=== PATIENT | female | born 1970 | race American Indian/Alaskan Native ===

== ENCOUNTER 2019-08-12 12:49 | Emergency (ER) | payer SELFPAY ==
[2019-08-12 13:41] VITALS: BP 111/80
--- NOTE | 2019-08-12 14:46 | Emergency Department Report ---
Blank Doc - Documentation Documentation: 49-year-old female that presents with right sided headache and right eye pain. Denies any trauma or injuries. Stated is a new type of headache. This initial assessment/diagnostic orders/clinical plan/treatment(s) is/are subject to change based on patient's health status, clinical progression and re- assessment by fellow clinical providers in the ED. Further treatment and workup at subsequent clinical providers discretion. Patient/guardians urged not to elope from the ED as their condition may be serious if not clinically assessed and managed. Initial orders include: 1- Patient sent to [facility] for further evaluation and treatment 2- CT head
--- NOTE | 2019-08-12 15:14 | Cat Scan Report ---
CT HEAD WITHOUT CONTRAST INDICATION / CLINICAL INFORMATION: headache and right eye pain. TECHNIQUE: Axial imaging performed from the skull apex through the skull base without the use of cont rast. Sagittal and coronal reformatted images. All CT scans at this location are performed using CT dose reduction for ALARA by means of automated exposure control. COMPARISON: None available. FINDINGS: CEREBRAL PARENCHYMA: No significant abnormality. No acute territorial infarct. HEMORRHAGE: None. EXTRA-AXIAL SPACES: Normal in size and morphology for the patient's age. VENTRICULAR SYSTEM: Normal in size and morphology for the patient's age. MIDLINE SHIFT OR HERNIATION: None. CEREBELLUM / BRAINSTEM: There is crowding at the foramen magnum. Mild cerebellar tonsillar ectopia is suspected measuring approximately 5 mm. CALVARIUM: No significant abnormality. ORBITS: Only the superior orbits are included on this exam which demonstrate no abnormality. PARANASAL SINUSES / MASTOID AIR CELLS: Normal as visualized. SOFT TISSUES of HEAD: No significant abnormality. ADDITIONAL FINDINGS: None. IMPRESSION: No acute intracranial abnormality. Mild cerebellar tonsillar ectopia is suspected as described. No obvious abnormality with the visualized right orbit. Signer Name: Fco Almazan Jr, MD Signed: 08/12/2019 3:09 PM Workstation Name: [id number]
--- NOTE | 2019-08-12 15:33 | Emergency Department Report ---
ED Headache HPI - General Chief Complaint: Headache Stated Complaint: (R) SIDE/EYE PAIN/POUNDING Time Seen by Provider: 08/12/19 14:45 Source: patient - History of Present Illness Initial Comments: 49 YO AA FEMALE COMES TO ER WITH ROBINS BEHIND R EYE. A/C ROBINS HX. NO TRAUMA. REPORTS BEING STRESSED WITH WORK. AMBULATORY. TALKING WITH OTHER PTS. NAD NO TRAUMA NO FEVER Timing/Duration: 4-6 hours Quality: moderate Head Injury Location: frontal Recent Head Trauma: occasional headaches Modifying Factors: worse with: cold therapy, exposure to light, immobilization, medication, movement, rest, other Associated Symptoms: denies symptoms Allergies/Adverse Reactions: Allergies No Known Allergies Allergy (Verified 08/12/19 14:46) Home Medications: Ambulatory Orders Ibuprofen [Motrin] 800 mg PO Q8HR PRN #30 tablet 08/12/19 ED Review of Systems ROS: Stated complaint: (R) SIDE/EYE PAIN/POUNDING Other details as noted in HPI Comment: All other systems reviewed and negative ED Past Medical Hx - Past Medical History Previous Medical History?: Yes Hx Headaches / Migraines: Yes - Surgical History Past Surgical History?: Yes Additional Surgical History: Ectopic - Family History Family history: no significant - Social History Smoking Status: Current Every Day Smoker - Medications Home Medications: Home Medications Medication Instructions Recorded Confirmed Last Taken Type Ibuprofen [Motrin] 800 mg PO Q8HR PRN #30 tablet 08/12/19 Unknown Rx ED Physical Exam - General Limitations: No Limitations General appearance: alert, in no apparent distress - Head Head exam: Present: atraumatic, normocephalic - Eye Eye exam: Present: normal appearance - ENT ENT exam: Present: mucous membranes moist - Neck Neck exam: Present: normal inspection - Respiratory Respiratory exam: Present: normal lung sounds bilaterally. Absent: respiratory distress - Cardiovascular Cardiovascular Exam: Present: regular rate, normal rhythm. Absent: systolic murmur, diastolic murmur, rubs, gallop - GI/Abdominal GI/Abdominal exam: Present: soft, normal bowel sounds - Extremities Exam Extremities exam: Present: normal inspection - Back Exam Back exam: Present: normal inspection - Neurological Exam Neurological exam: Present: alert, oriented X3 - Psychiatric Psychiatric exam: Present: normal affect, normal mood - Skin Skin exam: Present: warm, dry, intact, normal color. Absent: rash ED Course Vital Signs 08/12/19 13:39 Temperature 98.0 F Pulse Rate 57 L Respiratory 16 Rate Blood Pressure 111/80 O2 Sat by Pulse 96 Oximetry ED Medical Decision Making - Radiology Data Radiology results: report reviewed, image reviewed - Medical Decision Making CT NEG VSS NAD NO FEVER NO TRAUMA INC STRESS ASKING FOR WORK NOTE HX MIGRAINES IN PAST NEURO INTACT NO FOCAL DEFICIT DROVE TO ER TORADOL IM ASKING FOR WORK NOTE Vital Signs 08/12/19 13:39 Temperature 98.0 F Pulse Rate 57 L Respiratory 16 Rate Blood Pressure 111/80 O2 Sat by Pulse 96 Oximetry - Differential Diagnosis ROBINS Critical care attestation.: If time is entered above; I have spent that time in minutes in the direct care of this critically ill patient, excluding procedure time. ED Disposition Clinical Impression: Headache Disposition: DC-01 TO HOME OR SELFCARE Is pt being admited?: No Does the pt Need Aspirin: No Condition: Stable Instructions: Tension Headache (ED), Migraine Headache (ED) Additional Instructions: WORK ON STRESS HYDRATE WELL AVOID EXCESS CAFFEINE FOLLOW UP WITH PCP REFERRAL BELOW Referrals: CLIFF WHEATLEY MD [Staff Physician] - 3-5 Days Forms: Work/School Release Form(ED) Time of Disposition: 15:37
[2019-08-12] MEDS ORDERED: KETOROLAC 60 MG/2 ML INJ IM ONE (15:37)
== END 2019-08-12 17:36 | disposition home or self-care (01) ==
LOC: ED 12:49
DX: G43.909 Migraine, unspecified, not intractable, without status migrainosus (principal); F17.200 Nicotine dependence, unspecified, uncomplicated
CPT/HCPCS: 70450; 96372; 99283; J1885

== ENCOUNTER 2022-01-30 15:29 | Emergency (ER) | payer SELFPAY ==
[2022-01-30 15:48] VITALS: BP 105/66
--- NOTE | 2022-01-30 15:49 | Emergency Department Report ---
Stated Complaint: CHEST PAIN Time Seen by Provider: 01/30/22 15:47 - HPI History of Present Illness: Midsternal chest pain that started 2 hours ago and is associated with nausea and dizziness. Pain is nonradiating. She denies shortness of breath, vomiting, and diaphoresis. She states that pain is not changed movement but does hurt a little worse with deep inspiration. - ROS Review of Systems: Complaints of chest pain, nausea, dizziness. Denies vomiting, diaphoresis, shortness of breath. - Exam Physical Exam: Alert and oriented x3, moving all extremities well. MSE screening note: Focused history and physical exam performed. Due to findings the following was ordered: CBC, CMP, troponin, EKG, and chest x- ray. ED Disposition for MSE Condition: Stable
--- NOTE | 2022-01-30 17:00 | XRay Report ---
CHEST 2 VIEWS INDICATION / CLINICAL INFORMATION: Chest pain for one month intermittently. COMPARISON: None available. FINDINGS: SUPPORT DEVICES: None. HEART / MEDIASTINUM: The heart size and pulmonary vasculature are normal. The aorta is normal in harley taty. LUNGS / PLEURA: No significant pulmonary or pleural abnormality. No pneumothorax. ADDITIONAL FINDINGS: No significant additional findings. IMPRESSION: No acute findings. Signer Name: Rah Ordoñez MD Signed: 01/30/2022 4:56 PM Workstation Name: [id number]
[2022-01-30 17:31] LABS: Hematocrit 37.7 % (30.3-42.9); Hemoglobin 12.7 gm/dl (10.1-14.3); Mean Corpuscular HGB Conc 34 % (30-34); Mean Corpuscular Volume 86 fl (79-97); Platelet Count 330 K/mm3 (140-440); Red Cell Distribution Width 14.1 % (13.2-15.2)
[2022-01-30 17:53] LABS: Alanine Aminotransferase 8 units/L (7-56); BUN/Creatinine Ratio 11; Blood Urea Nitrogen 10 mg/dL (7-17); Calcium 9.2 mg/dL (8.4-10.2); Hemolysis Index 11
--- NOTE | 2022-01-31 17:50 | Electrocardiograph Report ---
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
== END 2022-01-31 01:05 | disposition left against medical advice (07) ==
LOC: ED 15:29
DX: R07.9 Chest pain, unspecified (principal); Z53.21 Procedure and treatment not carried out due to patient leaving prior to being seen by health care provider
CPT/HCPCS: 36415; 71046; 80053; 84484; 85027; 93005